=== PATIENT | male | born 1955 | race Caucasian/White ===

== ENCOUNTER 2017-11-07 22:26 | Inpatient (IN) | payer OTHER ==
[2017-11-08] MEDS: ONDANSETRON 4 MG INJ IV (00:09)
[2017-11-08] MEDS: morphine 2 MG INJ IV (00:09)
[2017-11-08 00:15] LABS: ADD MAN DIFF? NO
[2017-11-08] MEDS: SOD CHLORIDE 0.9% 1,000 ML IV (00:17)
[2017-11-08 00:23] LABS: BASOPHILS % 0.3 % (0.0-2.0); EOSINOPHILS # 0.4 10^3/ul (0.0-0.5); EOSINOPHILS % 2.4 % (0.0-7.0); HEMATOCRIT 30.4 % (42.0-52.0); HEMOGLOBIN 9.2 g/dl (14.0-18.0); LYMPHOCYTES # 2.5 10^3/ul (0.8-2.9); LYMPHOCYTES % 17.2 % (15.0-51.0); MEAN CORPUSCULAR HEMOGLOBIN 20.1 pg (29.0-33.0); MEAN CORPUSCULAR HGB CONC 30.3 g/dl (32.0-37.0); MEAN CORPUSCULAR VOLUME 66.5 fl (82.0-101.0); MEAN PLATELET VOLUME 9.5 fl (7.4-10.4); MONOCYTE # 0.9 10^3/ul (0.3-0.9); MONOCYTES % 6.1 % (0.0-11.0); NEUTROPHIL # 10.8 10^3/ul (1.6-7.5); NEUTROPHILS % 73.3 % (39.0-77.0); PLATELET COUNT 230 10^3/UL (140-415); RED BLOOD COUNT 4.57 10^6/ul (4.70-6.10); RED CELL DISTRIBUTION WIDTH 19.6 % (11.5-14.5)
[2017-11-08 00:23] LABS: WHITE BLOOD COUNT 14.7 10^3/ul (4.8-10.8)
[2017-11-08 00:36] LABS: ADD UMIC YES; UR ASCORBIC ACID 40 mg/dL (NEGATIVE); UR BACTERIA FEW /HPF (NONE SEEN); UR BILIRUBIN (Dip) NEGATIVE (NEGATIVE); UR BLOOD (Dip) 1+ mg/dL (NEGATIVE); UR BUDDING YEAST MODERATE /HPF (NONE SEEN); UR CLARITY CLOUDY (CLEAR); UR COLOR YELLOW (YELLOW); UR GLUCOSE (Dip) NEGATIVE (NEGATIVE); UR KETONES (Dip) NEGATIVE (NEGATIVE); UR LEUKOCYTE ESTERASE (Dip) 2+ Leu/ul (NEGATIVE); UR MUCUS FEW /HPF (NONE SEEN); UR NITRITE (Dip) NEGATIVE (NEGATIVE); UR RBC 55 /HPF (0-5); UR SPECIFIC GRAVITY (Dip) 1.011 (1.003-1.030); UR TOTAL PROTEIN (Dip) NEGATIVE (NEGATIVE); UR UROBILINOGEN (Dip) NEGATIVE (NEGATIVE); UR WBC 25 /HPF (0-5)
[2017-11-08 00:40] LABS: ANION GAP 12 (8-16); BLOOD UREA NITROGEN 37 mg/dl (7-20); CALCIUM 8.8 mg/dl (8.4-10.2); CARBON DIOXIDE 24 mmol/L (21-31); CHLORIDE 111 mmol/L (97-110); CREATININE 1.24 mg/dl (0.61-1.24); GLUCOSE 93 mg/dl (70-220); POTASSIUM 5.3 mmol/L (3.5-5.1); SODIUM 142 mmol/L (135-144)
[2017-11-08] MEDS: CEFEPIME 1GM/50 ML (PMX) 50 ML IVPB ×3 (01:32→22:26)
[2017-11-08] MEDS ORDERED: NACL 0.9% 3 ML SYG IV (02:30)
[2017-11-08] MEDS ORDERED: hydrOXYzine HCL 10 MG TAB PO (02:30)
[2017-11-08] MEDS ORDERED: ALBUTEROL 0.083% (NEB) 2.5 MG/3 ML AMP NEB (02:30)
[2017-11-08] MEDS ORDERED: ONDANSETRON 4 MG INJ IV (02:30)
[2017-11-08] MEDS ORDERED: DOCUSATE SODIUM 100 MG CAP PO (02:30)
[2017-11-08] MEDS ORDERED: ACETAMINOPHEN 325 MG TAB PO (02:30)
[2017-11-08] MEDS ORDERED: VANCOMYCIN IV PER PHARMACY XX (02:30)
[2017-11-08] MEDS: LACTATED RINGER'S 1,000 ML IV ×2 (03:21→04:46)
[2017-11-08] MEDS: FUROSEMIDE 20 MG INJ IV (03:21)
[2017-11-08] MEDS: VANCOMYCIN 1 GM (PMX) 250 ML IVPB (03:22)
[2017-11-08] MEDS: ALBUTEROL 0.083% (NEB) 2.5 MG/3 ML AMP HHN (03:31)
[2017-11-08] MEDS: IPRATROPIUM (NEB) 0.5 MG/2.5 ML AMP HHN (03:31)
[2017-11-08 04:27] LABS: TROPONIN-I < 0.012 ng/ml (0.00-0.12)
[2017-11-08] MEDS ORDERED: CEFEPIME 2GM/50 ML (PMX) 50 ML IVPB (06:00)
[2017-11-08] MEDS: FERROUS SULFATE 60 MG/ML 5ML CUP PO ×2 (09:31→22:26)
[2017-11-08] MEDS: GABAPENTIN 300 MG CAP PO ×3 (09:32→22:26)
[2017-11-08] MEDS: LEVETIRACETAM 500 MG TAB PO ×2 (09:32→22:26)
[2017-11-08] MEDS ORDERED: PENDING SANTYL ORDER FOR WOUND CARE XX (13:00)
[2017-11-08] MEDS: ATORVASTATIN 20 MG TAB PO (22:26)
[2017-11-08] MEDS: VANCOMYCIN 1 GM 250 ML IVPB (22:28)
[2017-11-09 07:41] LABS: ADD MAN DIFF? NO
[2017-11-09 07:47] LABS: WHITE BLOOD COUNT 15.5 10^3/ul (4.8-10.8)
[2017-11-09 07:47] LABS: BASOPHIL # 0.1 10^3/ul (0.0-0.1); BASOPHILS % 0.3 % (0.0-2.0); EOSINOPHILS # 0.2 10^3/ul (0.0-0.5); HEMATOCRIT 29.6 % (42.0-52.0); HEMOGLOBIN 8.9 g/dl (14.0-18.0); LYMPHOCYTES # 2.3 10^3/ul (0.8-2.9); LYMPHOCYTES % 15.1 % (15.0-51.0); MEAN CORPUSCULAR HGB CONC 30.1 g/dl (32.0-37.0); MEAN CORPUSCULAR VOLUME 66.5 fl (82.0-101.0); MEAN PLATELET VOLUME 10.8 fl (7.4-10.4); MONOCYTE # 0.7 10^3/ul (0.3-0.9); MONOCYTES % 4.8 % (0.0-11.0); NEUTROPHIL # 12.1 10^3/ul (1.6-7.5); NEUTROPHILS % 78.2 % (39.0-77.0); PLATELET COUNT 225 10^3/UL (140-415); RED BLOOD COUNT 4.45 10^6/ul (4.70-6.10); RED CELL DISTRIBUTION WIDTH 19.7 % (11.5-14.5)
[2017-11-09 08:02] LABS: IRON 27 ug/dl (35-150)
[2017-11-09 08:04] LABS: ANION GAP 11 (8-16); BLOOD UREA NITROGEN 33 mg/dl (7-20); CALCIUM 8.7 mg/dl (8.4-10.2); CARBON DIOXIDE 25 mmol/L (21-31); CHLORIDE 115 mmol/L (97-110); CREATININE 1.04 mg/dl (0.61-1.24); GLUCOSE 74 mg/dl (70-220); POTASSIUM 5.3 mmol/L (3.5-5.1); SODIUM 146 mmol/L (135-144)
[2017-11-09 08:06] LABS: INR 1.29; PROTIME 16.3 Sec (11.9-14.9); PT RATIO 1.3
[2017-11-09 08:07] LABS: PARTIAL THROMBOPLASTIN TIME 36.6 Sec (25.0-35.0)
[2017-11-09 08:12] LABS: % IRON SATURATION 14 % SAT (22-52); TOTAL IRON BINDING CAPACITY 192 ug/dl (241-421)
[2017-11-09] MEDS: FERROUS SULFATE 60 MG/ML 5ML CUP PO (09:00)
[2017-11-09] MEDS: GABAPENTIN 300 MG CAP PO ×4 (09:00→22:35)
[2017-11-09] MEDS: CEFEPIME 1GM/50 ML (PMX) 50 ML IVPB ×2 (09:00→22:34)
[2017-11-09] MEDS: LEVETIRACETAM 500 MG TAB PO ×3 (09:00→22:35)
[2017-11-09] MEDS: FERROUS SULFATE (EC) 325 MG TAB PO ×3 (13:20→22:35)
[2017-11-09] MEDS: ATORVASTATIN 20 MG TAB PO ×2 (21:00→22:35)
[2017-11-10] MEDS: VANCOMYCIN 1 GM 250 ML IVPB ×2 (00:34→23:44)
[2017-11-10 06:48] LABS: ADD MAN DIFF? NO
[2017-11-10 06:53] LABS: WHITE BLOOD COUNT 9.3 10^3/ul (4.8-10.8)
[2017-11-10 06:53] LABS: BASOPHIL # 0.1 10^3/ul (0.0-0.1); BASOPHILS % 0.5 % (0.0-2.0); EOSINOPHILS # 0.3 10^3/ul (0.0-0.5); EOSINOPHILS % 3.1 % (0.0-7.0); HEMATOCRIT 33.3 % (42.0-52.0); HEMOGLOBIN 9.8 g/dl (14.0-18.0); LYMPHOCYTES # 1.9 10^3/ul (0.8-2.9); LYMPHOCYTES % 20.7 % (15.0-51.0); MEAN CORPUSCULAR HEMOGLOBIN 19.8 pg (29.0-33.0); MEAN CORPUSCULAR HGB CONC 29.4 g/dl (32.0-37.0); MEAN CORPUSCULAR VOLUME 67.3 fl (82.0-101.0); MEAN PLATELET VOLUME 9.2 fl (7.4-10.4); MONOCYTE # 0.7 10^3/ul (0.3-0.9); MONOCYTES % 7.7 % (0.0-11.0); NEUTROPHIL # 6.3 10^3/ul (1.6-7.5); NEUTROPHILS % 67.3 % (39.0-77.0); PLATELET COUNT 211 10^3/UL (140-415); RED BLOOD COUNT 4.95 10^6/ul (4.70-6.10)
[2017-11-10] MEDS: CEFEPIME 1GM/50 ML (PMX) 50 ML IVPB ×3 (08:33→22:44)
[2017-11-10] MEDS: FERROUS SULFATE (EC) 325 MG TAB PO ×3 (09:00→21:00)
[2017-11-10] MEDS: GABAPENTIN 300 MG CAP PO ×5 (09:00→22:17)
[2017-11-10] MEDS: LEVETIRACETAM 500 MG TAB PO ×2 (09:25→21:00)
[2017-11-10 10:20] LABS: ANION GAP 12 (8-16); BLOOD UREA NITROGEN 36 mg/dl (7-20); CARBON DIOXIDE 25 mmol/L (21-31); CHLORIDE 115 mmol/L (97-110); CREATININE 0.89 mg/dl (0.61-1.24); GLUCOSE 79 mg/dl (70-220); POTASSIUM 4.8 mmol/L (3.5-5.1); SODIUM 147 mmol/L (135-144)
[2017-11-10] MEDS: ATORVASTATIN 20 MG TAB PO ×2 (21:00→22:16)
[2017-11-10] MEDS: D5W-0.45 NACL + KCL 20 MEQ 1,000 ML IV (23:44)
[2017-11-11 08:13] LABS: ADD MAN DIFF? NO
[2017-11-11 08:22] LABS: BASOPHILS % 0.5 % (0.0-2.0); EOSINOPHILS # 0.3 10^3/ul (0.0-0.5); EOSINOPHILS % 3.1 % (0.0-7.0); HEMATOCRIT 28.8 % (42.0-52.0); HEMOGLOBIN 8.7 g/dl (14.0-18.0); LYMPHOCYTES # 1.5 10^3/ul (0.8-2.9); LYMPHOCYTES % 18.1 % (15.0-51.0); MEAN CORPUSCULAR HEMOGLOBIN 19.7 pg (29.0-33.0); MEAN CORPUSCULAR HGB CONC 30.2 g/dl (32.0-37.0); MEAN CORPUSCULAR VOLUME 65.3 fl (82.0-101.0); MEAN PLATELET VOLUME 9.9 fl (7.4-10.4); MONOCYTE # 0.5 10^3/ul (0.3-0.9); MONOCYTES % 6.3 % (0.0-11.0); NEUTROPHIL # 5.9 10^3/ul (1.6-7.5); NEUTROPHILS % 71.5 % (39.0-77.0); PLATELET COUNT 230 10^3/UL (140-415); RED BLOOD COUNT 4.41 10^6/ul (4.70-6.10); RED CELL DISTRIBUTION WIDTH 19.7 % (11.5-14.5)
[2017-11-11 08:22] LABS: WHITE BLOOD COUNT 8.3 10^3/ul (4.8-10.8)
[2017-11-11 08:36] LABS: ANION GAP 7 (8-16); BLOOD UREA NITROGEN 27 mg/dl (7-20); CALCIUM 8.7 mg/dl (8.4-10.2); CARBON DIOXIDE 28 mmol/L (21-31); CHLORIDE 114 mmol/L (97-110); GLUCOSE 100 mg/dl (70-220); POTASSIUM 4.4 mmol/L (3.5-5.1); SODIUM 145 mmol/L (135-144)
[2017-11-11] MEDS: FERROUS SULFATE (EC) 325 MG TAB PO ×2 (09:00→21:08)
[2017-11-11] MEDS: GABAPENTIN 300 MG CAP PO ×3 (09:00→21:08)
[2017-11-11] MEDS: LEVETIRACETAM 500 MG TAB PO ×2 (09:00→21:07)
[2017-11-11] MEDS: CEFEPIME 1GM/50 ML (PMX) 50 ML IVPB ×2 (09:01→21:07)
[2017-11-11] MEDS: D5W-0.45 NACL + KCL 20 MEQ 1,000 ML IV (12:55)
[2017-11-11] MEDS: SOD FERRIC GLUC COMPLX 125 MG in SOD CHLORIDE 0.9% 100 ML IVPB (16:43)
[2017-11-11] MEDS: ATORVASTATIN 20 MG TAB PO (21:08)
[2017-11-11] MEDS ORDERED: hydrALAzine 20 MG INJ IV (21:30)
[2017-11-11 23:14] LABS: VANCOMYCIN,TROUGH 12.6 ug/ml (10.0-20.0)
[2017-11-11] MEDS: VANCOMYCIN 1 GM 250 ML IVPB (23:45)
[2017-11-12] MEDS: D5W-0.45 NACL + KCL 20 MEQ 1,000 ML IV ×2 (05:01→18:25)
[2017-11-12 08:19] LABS: ADD MAN DIFF? NO
[2017-11-12 08:21] LABS: WHITE BLOOD COUNT 5.9 10^3/ul (4.8-10.8)
[2017-11-12 08:21] LABS: BASOPHILS % 0.5 % (0.0-2.0); EOSINOPHILS # 0.2 10^3/ul (0.0-0.5); EOSINOPHILS % 2.6 % (0.0-7.0); HEMATOCRIT 28.8 % (42.0-52.0); HEMOGLOBIN 8.8 g/dl (14.0-18.0); LYMPHOCYTES # 1.9 10^3/ul (0.8-2.9); LYMPHOCYTES % 32.5 % (15.0-51.0); MEAN CORPUSCULAR HEMOGLOBIN 19.8 pg (29.0-33.0); MEAN CORPUSCULAR HGB CONC 30.6 g/dl (32.0-37.0); MEAN CORPUSCULAR VOLUME 64.9 fl (82.0-101.0); MEAN PLATELET VOLUME 9.6 fl (7.4-10.4); MONOCYTE # 0.5 10^3/ul (0.3-0.9); MONOCYTES % 8.8 % (0.0-11.0); NEUTROPHIL # 3.2 10^3/ul (1.6-7.5); NEUTROPHILS % 55.1 % (39.0-77.0); PLATELET COUNT 203 10^3/UL (140-415); RED BLOOD COUNT 4.44 10^6/ul (4.70-6.10); RED CELL DISTRIBUTION WIDTH 18.8 % (11.5-14.5)
[2017-11-12 08:54] LABS: ANION GAP 13 (8-16); BLOOD UREA NITROGEN 15 mg/dl (7-20); CALCIUM 8.2 mg/dl (8.4-10.2); CARBON DIOXIDE 22 mmol/L (21-31); CHLORIDE 111 mmol/L (97-110); CREATININE 0.62 mg/dl (0.61-1.24); GLUCOSE 86 mg/dl (70-220); POTASSIUM 4.1 mmol/L (3.5-5.1); SODIUM 142 mmol/L (135-144)
[2017-11-12] MEDS: LEVETIRACETAM 500 MG TAB PO ×2 (09:00→21:00)
[2017-11-12] MEDS: GABAPENTIN 300 MG CAP PO ×3 (09:00→21:00)
[2017-11-12] MEDS: FERROUS SULFATE (EC) 325 MG TAB PO ×2 (09:00→21:00)
[2017-11-12] MEDS: CEFEPIME 1GM/50 ML (PMX) 50 ML IVPB ×2 (09:08→21:02)
[2017-11-12] MEDS: SOD FERRIC GLUC COMPLX 125 MG in SOD CHLORIDE 0.9% 100 ML IVPB (18:25)
[2017-11-12] MEDS: ATORVASTATIN 20 MG TAB PO (21:00)
[2017-11-13] MEDS: GABAPENTIN 300 MG CAP PO ×3 (09:00→20:30)
[2017-11-13] MEDS: LEVETIRACETAM 500 MG TAB PO ×2 (09:00→20:31)
[2017-11-13] MEDS: FERROUS SULFATE (EC) 325 MG TAB PO ×2 (09:00→20:31)
[2017-11-13 09:24] LABS: ADD MAN DIFF? NO
[2017-11-13 09:30] LABS: WHITE BLOOD COUNT 5.4 10^3/ul (4.8-10.8)
[2017-11-13 09:30] LABS: BASOPHILS % 0.6 % (0.0-2.0); EOSINOPHILS # 0.1 10^3/ul (0.0-0.5); HEMATOCRIT 29.1 % (42.0-52.0); HEMOGLOBIN 8.9 g/dl (14.0-18.0); LYMPHOCYTES # 1.6 10^3/ul (0.8-2.9); LYMPHOCYTES % 28.9 % (15.0-51.0); MEAN CORPUSCULAR HGB CONC 30.6 g/dl (32.0-37.0); MEAN CORPUSCULAR VOLUME 65.2 fl (82.0-101.0); MEAN PLATELET VOLUME 9.8 fl (7.4-10.4); MONOCYTE # 0.6 10^3/ul (0.3-0.9); MONOCYTES % 10.2 % (0.0-11.0); NEUTROPHIL # 3.1 10^3/ul (1.6-7.5); NEUTROPHILS % 57.6 % (39.0-77.0); PLATELET COUNT 204 10^3/UL (140-415); RED BLOOD COUNT 4.46 10^6/ul (4.70-6.10); RED CELL DISTRIBUTION WIDTH 19.4 % (11.5-14.5)
[2017-11-13] MEDS: CEFEPIME 1GM/50 ML (PMX) 50 ML IVPB ×2 (09:35→20:29)
[2017-11-13] MEDS: D5W-0.45 NACL + KCL 20 MEQ 1,000 ML IV ×2 (09:35→22:00)
[2017-11-13 09:47] LABS: ANION GAP 10 (8-16); BLOOD UREA NITROGEN 11 mg/dl (7-20); CALCIUM 8.3 mg/dl (8.4-10.2); CARBON DIOXIDE 23 mmol/L (21-31); CHLORIDE 114 mmol/L (97-110); CREATININE 0.64 mg/dl (0.61-1.24); GLUCOSE 85 mg/dl (70-220); POTASSIUM 4.1 mmol/L (3.5-5.1); SODIUM 143 mmol/L (135-144)
[2017-11-13] MEDS: SOD FERRIC GLUC COMPLX 125 MG in SOD CHLORIDE 0.9% 100 ML IVPB (18:04)
[2017-11-13] MEDS: ATORVASTATIN 20 MG TAB PO (20:31)
[2017-11-14] MEDS: D5W-0.45 NACL + KCL 20 MEQ 1,000 ML IV (05:45)
[2017-11-14 06:48] LABS: ADD MAN DIFF? NO
[2017-11-14 06:51] LABS: WHITE BLOOD COUNT 6.6 10^3/ul (4.8-10.8)
[2017-11-14 06:51] LABS: BASOPHILS % 0.6 % (0.0-2.0); EOSINOPHILS # 0.1 10^3/ul (0.0-0.5); HEMATOCRIT 26.9 % (42.0-52.0); HEMOGLOBIN 8.3 g/dl (14.0-18.0); LYMPHOCYTES # 2.2 10^3/ul (0.8-2.9); MEAN CORPUSCULAR HEMOGLOBIN 20.1 pg (29.0-33.0); MEAN CORPUSCULAR HGB CONC 30.9 g/dl (32.0-37.0); MEAN CORPUSCULAR VOLUME 65.3 fl (82.0-101.0); MEAN PLATELET VOLUME 9.6 fl (7.4-10.4); MONOCYTE # 0.7 10^3/ul (0.3-0.9); MONOCYTES % 9.8 % (0.0-11.0); NEUTROPHIL # 3.6 10^3/ul (1.6-7.5); PLATELET COUNT 187 10^3/UL (140-415); RED BLOOD COUNT 4.12 10^6/ul (4.70-6.10); RED CELL DISTRIBUTION WIDTH 19.1 % (11.5-14.5)
[2017-11-14 07:07] LABS: ANION GAP 8 (8-16); BLOOD UREA NITROGEN 13 mg/dl (7-20); CALCIUM 8.2 mg/dl (8.4-10.2); CARBON DIOXIDE 26 mmol/L (21-31); CHLORIDE 113 mmol/L (97-110); CREATININE 0.83 mg/dl (0.61-1.24); GLUCOSE 85 mg/dl (70-220); POTASSIUM 3.7 mmol/L (3.5-5.1); SODIUM 143 mmol/L (135-144)
[2017-11-14] MEDS: CEFEPIME 1GM/50 ML (PMX) 50 ML IVPB (08:27)
[2017-11-14] MEDS: LEVETIRACETAM 500 MG TAB PO (08:28)
[2017-11-14] MEDS: FERROUS SULFATE (EC) 325 MG TAB PO (08:28)
[2017-11-14] MEDS: GABAPENTIN 300 MG CAP PO ×2 (08:28→13:00)
== END 2017-11-14 16:24 | DRG 871 ==
LOC: TEL 11-08 02:25 → E/R 22:26
DX: A41.9 Sepsis, unspecified organism (principal); J18.9 Pneumonia, unspecified organism; N39.0 Urinary tract infection, site not specified; N17.9 Acute kidney failure, unspecified; I69.154 Hemiplegia and hemiparesis following nontraumatic intracerebral hemorrhage affecting left non-dominant side; E11.22 Type 2 diabetes mellitus with diabetic chronic kidney disease; E11.65 Type 2 diabetes mellitus with hyperglycemia; J44.9 Chronic obstructive pulmonary disease, unspecified; D50.9 Iron deficiency anemia, unspecified; I12.9 Hypertensive chronic kidney disease with stage 1 through stage 4 chronic kidney disease, or unspecified chronic kidney disease; N18.9 Chronic kidney disease, unspecified; E78.5 Hyperlipidemia, unspecified; Z46.6 Encounter for fitting and adjustment of urinary device; Z79.4 Long term (current) use of insulin
CPT/HCPCS: 36415; 71045; 74176; 80048; 80202; 81001; 82728; 83540; 83735; 84484; 85025; 85610; 85730; 87040; 87086; 92610; 93005; 94664; 96374; 96375; 97161; 99291-25